=== PATIENT | female | born 2000 | race Caucasian/White ===

== ENCOUNTER 2018-11-10 08:15 | Outpatient (RCR) | payer BC | END 2018-11-22 | disposition still patient (30) | LOC: WSST | DX: J38.2 Nodules of vocal cords (principal) ==

== ENCOUNTER 2018-12-30 13:45 | Outpatient (RCR) | payer BC | END 2019-03-01 | disposition home or self-care (01) | LOC: WSST | DX: R49.0 Dysphonia (principal); J38.2 Nodules of vocal cords ==